=== PATIENT | male | born 2000 | race Caucasian/White ===

== ENCOUNTER 2018-03-10 21:07 | Emergency (ER) | payer BC, SELFPAY ==
[2018-03-10 21:14] VITALS: BP 125/82; PULSE 84; RESP 18; TEMP 37.1; O2SAT 99
[2018-03-10 22:00] VITALS: BP 125/82; PULSE 84; RESP 18; TEMP 37.1; O2SAT 99
--- NOTE | 2018-03-10 22:13 | PC.NURSE ---
Long discussion with patient, verbal contract for safety. Pt. states I am too much of a chicken to use anything in this room - I'm more of a just fall asleep kind of suicide. Family and friend at BS but patient is calm - slightly tearful - but appropriate. Pt. reports having no real cause for his depression. He states he just gets these suicidal thoughts frequently. He reports this being the first time he acted on the thoughts. Is pretty adamant that whatever path he'd take for suicide it would have to be sure not to cause pain. He is very clear that he won't do any self harm when here.
[2018-03-10 22:30] VITALS: BP 109/64; PULSE 68; RESP 20; O2SAT 99
[2018-03-10 22:40] LABS: Add Manual Diff / Slide Review NO; Basophils Percent Auto 0.6 % (0-2); Eosinophils Percent Auto 4.1 % (2-4); Hematocrit 41.5 % (41-53); Hemoglobin 14.5 g/dL (13.5-17.5); Lymphocytes Percent Auto 26.4 % (25-40); Mean Corpuscular HGB Conc 34.9 % (30-36); Mean Corpuscular Hemoglobin 30.9 PG (26-34); Mean Corpuscular Volume 88.5 fL (80-100); Monocytes Percent Auto 8.6 % (3-14); Neutrophils Absolute Auto 5200 /uL (3000-5900); Neutrophils Percent Auto 60.3 % (50-75); Platelet Count 206 X10^3/uL (150-400); Red Blood Cell Count 4.68 X10^6/uL (4.5-5.9); Red Cell Distribution Width 12.7 % (11.6-14.8); White Blood Cell Count 8.6 X10^3/uL (4.5-11.0)
[2018-03-10 22:52] LABS: Alanine Aminotransferase 28 IU/L (21-72); Albumin 4.5 g/dL (3.5-5.0); Albumin Globulin Ratio 1.5 (1.0-2.8); Alkaline Phosphatase 68 U/L (38-126); Aspartate Aminotransferase 18 IU/L (17-59); BUN Creatinine Ratio 18.8 (6-22); Bilirubin Total 0.6 mg/dL (0.2-1.3); Blood Urea Nitrogen 15 mg/dL (9-20); Calcium 9.3 mg/dL (8.4-10.2); Carbon Dioxide 29 mmol/L (22-32); Chloride 101 mmol/L (98-107); Estimated Glomerular Filt Rate > 60.0 mL/min (>60); Ethanol (ETOH) < 10 mg/dL; Glucose 102 mg/dL (70-100); HEMOLYSIS < 15 (0-50); Lipase 36 U/L (23-300); Potassium 3.7 mmol/L (3.4-5.1); Sodium 139 mmol/L (137-145); Total Protein 7.5 g/dL (6.3-8.2)
[2018-03-10 22:53] LABS: Acetaminophen < 10 ug/mL (10-30); Salicylate < 1.0 mg/dL (<20)
[2018-03-10 23:00] VITALS: BP 102/57; PULSE 66; RESP 19; O2SAT 98
--- NOTE | 2018-03-10 23:47 | ED.GENADULT ---
HPI - General Adult General Chief complaint: Toxicology Problem Stated complaint: MOM STATES HE TRIED TO COMMIT SUICIDE Time Seen by Provider: 03/10/18 21:43 Source: patient and family Mode of arrival: ambulatory Limitations: no limitations History of Present Illness HPI narrative: 18-year-old male brought in with his mother and friend who stated that earlier this evening he was sitting in his car and opened a bottle of butane in order to kill himself. Patient states that he constantly has thoughts of suicide. Has seen a mental health provider in the past but does not see a mental health provider now. His anxiety medications are maintain by his primary care doctor down in [place]. Patient states that he has only occasionally been taking his anxiety medicines. He states that he frequently has thoughts of suicide but has never acted on these thoughts. He states that he was in his car today and had thoughts of the suicide and decided to open a container butane that he had. His friend who is at bedside stated that he had texted her stating that he was going to a better place and when she got this text and found out where he was she went to meet him. Patient states that after he open the bottle and butane it was not doing anything so he started to Inhale it. He states that he was stopped by his friend who came to do where his car was. Patient states that he does not know why he decided to act on his thoughts this evening. He denies any specific reason. Patient has never been admitted to the hospital in the past because of these thoughts. States currently that he does not feel like he needs admitted to the hospital. The time of my evaluation patient denied any suicidality. Related Data Home Medications Medication Instructions Recorded Confirmed fluoxetine 40 mg PO DAILY 03/10/18 03/10/18 Allergies Allergy/AdvReac Type Severity Reaction Status Date / Time No Known Drug Allergies Allergy Verified 03/10/18 21:18 Review of Systems Constitutional Denies headache(s) ENT Ears, Nose, Mouth, and Throat: Denies headache(s) Respiratory Denies chest congestion and Denies cough Gastrointestinal Gastrointestinal: Denies diarrhea, Denies nausea and Denies vomiting Musculoskeletal Denies myalgias and Denies arthralgias Integumentary/Breasts Denies lesions and Denies rash Neurologic Denies behavioral changes and Denies headache(s) Psychiatric Denies anxiety, Denies behavioral changes, Reports depression, Denies panic attacks, Denies homicidal ideation and Reports suicidal ideation ( Earlier today but none at the time of my evaluation) Hematologic/Lymphatic Denies easy bruising Exam Initial Vital Signs Initial Vital Signs: Vital Signs Temperature 98.8 F 03/10/18 21:14 Pulse Rate 84 03/10/18 21:14 Respiratory Rate 18 03/10/18 21:14 Blood Pressure 125/82 H 03/10/18 21:14 Pulse Oximetry 99 03/10/18 21:14 Const General: cooperative, healthy appearing, comfortable, well developed, well groomed and No acute distress Nutritional Appearance: average body habitus Orientation: alert, awake and oriented x3 HENMT Head: normal to inspection, normocephalic and atraumatic Resp Effort & Inspection: normal respiratory effort Cardio Rate: regular rate GI Palpation: soft and No firm Skin Lesions: no lesions Rashes: no rashes Neuro General: alert, awake and oriented x3 Cognition: normal cognition Speech: speech normal Gait: normal gait Motor: muscle tone normal throughout Sensory Exam: no sensory deficits noted Extrem General: normal to inspection and capillary refill normal Psych Appearance: grossly normal and well kempt Mental Status: mental status grossly normal Speech and Movement: speech and movement normal Mood: congruent mood Affect: normal affect Attitude: cooperative Thought Process: normal Thought Content: normal Course Orders Ordered: ED Orders 03/10/18 22:37 Acetaminophen Stat Complete Blood Count AUTO DIFF Stat Comprehensive Metabolic Panel Stat Ethanol (ETOH) Stat Lipase Stat Salicylate Stat Vital Signs - 8 hr 03/10/18 21:14 03/10/18 22:00 03/10/18 22:30 Temperature 98.8 F 98.8 F Pulse Rate 84 84 68 Respiratory Rate 18 18 20 Blood Pressure 125/82 H 125/82 H Blood Pressure [Right Arm] 109/64 Pulse Oximetry 99 99 99 03/10/18 23:00 03/11/18 00:03 03/11/18 01:03 Temperature 97.8 F Pulse Rate 66 60 63 Respiratory Rate 19 16 17 Blood Pressure Blood Pressure [Right Arm] 102/57 L 111/71 101/60 Pulse Oximetry 98 99 99 03/11/18 01:08 Temperature Pulse Rate 63 Respiratory Rate 17 Blood Pressure 110/68 Blood Pressure [Right Arm] Pulse Oximetry 100 Medical Decision Making MDM Narrative Medical decision making narrative: patient's labs unremarkable. He was observed here in the emergency department for several hours after he inhaled the butane. He seems to have no affect secondary to this. Had a long discussion with the patient and his mother who is at bedside and his friend who found him regarding disposition. Patient denied suicidality at the time of my evaluation. He stated that he felt like he did not need admitted to the hospital. We did discuss the concerns that I had regarding his acting out on the thoughts that he was having today which he has never done in the past. The mother agreed with this concern. We did discuss the option of admitting the patient to the hospital for continued evaluation and informed them that this would be the quickest way for him to have his medications adjusted which is what the patient thought needed to happen. After this lengthy discussion with both the mother and a friend at bedside the decision was made to discharge the patient home. The mother states that there would be somebody who could watch him. The plan is for him to contact his primary care doctor tomorrow for follow-up. The mother was agreeable with discharging the patient and the patient was okay with this plan. They were given return precautions. They were informed that they could return to the emergency department at any point for thoughts of hurting himself. The patient expressed understanding and stated that he would do this. Patient was alert and oriented x3. In my opinion had the capacity to make decisions. He was medically cleared. No signs of intoxication. Lab Data Lab results reviewed: Yes I reviewed the patient's lab results. Result diagrams: 03/10/18 22:37 03/10/18 22:37 Lab Results 03/10/18 03/10/18 03/10/18 Range/Units 22:37 22:37 22:37 WBC 8.6 (4.5-11.0) X10^3/uL RBC 4.68 (4.5-5.9) X10^6/uL Hgb 14.5 (13.5-17.5) g/dL Hct 41.5 (41-53) % MCV 88.5 (80-100) fL MCH 30.9 (26-34) PG MCHC 34.9 (30-36) % RDW 12.7 (11.6-14.8) % Plt Count 206 (150-400) X10^3/uL Neut % (Auto) 60.3 (50-75) % Lymph % (Auto) 26.4 (25-40) % [place] % (Auto) 8.6 (3-14) % Eos % (Auto) 4.1 H (2-4) % Baso % (Auto) 0.6 (0-2) % Neut # (Auto) 5200 (1619-4330) /uL Sodium 139 (137-145) mmol/L Potassium 3.7 (3.4-5.1) mmol/L Chloride 101 (98-107) mmol/L Carbon Dioxide 29 (22-32) mmol/L BUN 15 (9-20) mg/dL Creatinine 0.80 (0.66-1.25) mg/dL Estimated GFR > 60.0 (>60) mL/min BUN/Creatinine Ratio 18.8 (6-22) Glucose 102 H (70-100) mg/dL Calcium 9.3 (8.4-10.2) mg/dL Total Bilirubin 0.6 (0.2-1.3) mg/dL AST 18 (17-59) IU/L ALT 28 (21-72) IU/L Alkaline Phosphatase 68 (38-126) U/L Total Protein 7.5 (6.3-8.2) g/dL Albumin 4.5 (3.5-5.0) g/dL Globulin 3.0 (1.7-4.1) g/dL Albumin/Globulin Ratio 1.5 (1.0-2.8) Lipase 36 (23-300) U/L Salicylates < 1.0 (<20) mg/dL Acetaminophen < 10 L (10-30) ug/mL Ethyl Alcohol < 10 mg/dL Discharge Plan Departure Patient Disposition: Home, Self-Care Clinical Impression: Adjustment disorder, Depression Discharge Date/Time: 03/11/18 01:05 Interventions: ED Discharge Assessment Last Done: 03/11/18 01:08 Instructions: Depression, Adjustment Disorder Activity Restrictions/Additional Instructions: you are to contact your primary care doctor tomorrow to schedule a follow-up appointment. You are to stay at home or with a family member until you are seen by your primary care doctor. The emergency department is open 10/03 you may return to emergency department at any point for thoughts of hurting herself or others. I encourage you to do this. You can also contact the crisis line on the pamphlet that you were given. Continue all of your medications as directed Prescriptions: No Action fluoxetine 40 mg Capsule 40 mg PO DAILY RF: 0
[2018-03-11 00:03] VITALS: BP 111/71; PULSE 60; RESP 16; O2SAT 99
--- NOTE | 2018-03-11 00:04 | PC.NURSE ---
Mom and friend continue to stay at BS with patient. Vitals remain within normal limits, MD at BS
[2018-03-11 01:03] VITALS: BP 101/60; PULSE 63; RESP 17; TEMP 36.6; O2SAT 99
[2018-03-11 01:08] VITALS: BP 110/68; PULSE 63; RESP 17; O2SAT 100
== END 2018-03-11 01:05 | disposition home or self-care (01) ==
PROVIDERS: Emergency Provider Emergency Medicine; Family Provider Family Medicine; PCP Family Medicine
DX: F43.20 Adjustment disorder, unspecified (principal); F32.9 Major depressive disorder, single episode, unspecified
CPT/HCPCS: 36591; 80053; 80320; 80329; 83690; 85025; 99285; G0480

== ENCOUNTER 2023-10-25 15:14 | Emergency (ER) | payer BC, SELFPAY ==
[2023-10-25 15:19] VITALS: BP 146/93; PULSE 98; RESP 12; TEMP 37.1; O2SAT 99; BMI 23.2
--- NOTE | 2023-10-25 15:47 | ED_ITS ---
HPI - Psych General Chief Complaint: Psychiatric Symptoms Stated Complaint: SI Time Seen by Provider: 10/25/23 15:37 Source: patient Mode of arrival: Ambulatory History of Present Illness HPI Narrative: Patient is a 23-year-old male. History of anxiety, depression and ADHD. Has been prescribed medicines in the past but has not been on them for at least the past 3 months. He states that they were causing him to have quite a bit of anxiety and chest discomfort. He states that for the past several days/weeks he has had increasing frequency of suicidal ideation with a plan. He states these thoughts are now starting to bother him. He has had alcohol within the past 24 hours. Last drink was this morning. He has not tried to hurt himself prior to this visit. He contacted his mother who brought him to the emergency department. Has not seen a mental health professional and at least a year. Recently moved back to the local area after living in [place] for almost a year. He is seeking inpatient treatment for his thoughts. Related Data Home Medications Medication Instructions Recorded Confirmed fluoxetine 40 mg capsule 40 mg PO DAILY 03/10/18 03/10/18 Allergies Allergy/AdvReac Type Severity Reaction Status Date / Time No Known Drug Allergies Allergy Verified 10/25/23 15:32 Review of Systems Constitutional Constitutional: Reports system reviewed and no additional complaints, except as documented Cardiovascular Cardiovascular: Reports system reviewed and no additional complaints, except as documented Respiratory Respiratory: Reports system reviewed and no additional complaints, except as documented Gastrointestinal Gastrointestinal: Reports system reviewed and no additional complaints, except as documented Integumentary/Breasts Skin/Breast: Reports system reviewed and no additional complaints, except as documented Psychiatric Psychiatric: Reports system reviewed and no additional complaints, except as documented Patient History Social History Smoking Status: Current every day smoker Smoking Status: Current every day smoker alcohol intake frequency: 3 or more drinks per day Substance Use Type: marijuana Exam Initial Vital Signs Initial Vital Signs: Vital Signs Temperature 98.8 F 10/25/23 15:19 Pulse Rate 98 H 10/25/23 15:19 Respiratory Rate 12 10/25/23 15:19 Blood Pressure 146/93 H 10/25/23 15:19 Pulse Oximetry 99 10/25/23 15:19 Oxygen Delivery Method Room Air 10/25/23 15:19 Const General: cooperative, comfortable and No ill appearing [facility] Head: normal to inspection and normocephalic Resp Effort & Inspection: normal respiratory effort Auscultation: clear to auscultation bilaterally Cardio Rate: regular rate Rhythm: regular rhythm GI Inspection: normal to inspection Palpation: soft, No firm and No guarding Skin General: no rashes or lesions noted Neuro General: patient alert, patient awake, patient oriented x3 and moves all extremities Psych Other: Calm, cooperative, does have suicide ideation. No homicidal ideation. Course Orders Ordered: ED Orders 10/25/23 15:31 Consult to [facility] [place] Dividing Machine Operator Stat Complete Blood Count AUTO DIFF Stat Thyroid Stimulating Hormone Stat 10/25/23 15:40 Acetaminophen Stat COVID19 -Nasal RAPID Stat Comprehensive Metabolic Panel Stat Ethanol (ETOH) Stat Salicylate Stat 10/25/23 15:54 Urine Drug Screen, Rapid Stat Vital Signs Vital signs: Vital Signs - 8 hr 10/25/23 15:19 Temperature 98.8 F Pulse Rate 98 H Respiratory Rate 12 Blood Pressure 146/93 H Pulse Oximetry 99 Oxygen Delivery Method Room Air MDM - Psych Lab Data 10/25/23 15:40 10/25/23 15:40 Labs: Lab Results 10/25/23 10/25/23 Range/Units 15:40 15:54 WBC 8.4 (4.5-11.0) X10^3/uL RBC 5.13 (4.5-5.9) X10^6/uL Hgb 15.6 (13.5-17.5) g/dL Hct 44.8 (41-53) % MCV 87.4 (80-100) fL MCH 30.3 (26-34) PG MCHC 34.7 (30-36) % RDW 13.0 (11.6-14.8) % Plt Count 299 (150-400) X10^3/uL Neut % (Auto) 57.9 (50-75) % Lymph % (Auto) 29.7 (25-40) % [place] % (Auto) 9.3 (3-14) % Eos % (Auto) 2.5 (2-4) % Baso % (Auto) 0.6 (0-2) % Neut # (Auto) 4900 (2034-6912) /uL Lymph # (Auto) 2500 (7294-3164) /uL [place] # (Auto) 800 (0-900) /uL Eos # (Auto) 200 (0-450) /uL Baso # (Auto) 100 (0-100) /uL Sodium 141 (137-145) mmol/L Potassium 3.7 (3.4-5.1) mmol/L Chloride 103 (98-107) mmol/L Carbon Dioxide 31 (22-32) mmol/L BUN 18 (9-20) mg/dL Creatinine 0.97 (0.66-1.25) mg/dL Estimated GFR > 60 (>60) mL/min BUN/Creatinine Ratio 18.6 (6-22) Glucose 93 (70-100) mg/dL Calcium 10.0 (8.4-10.2) mg/dL Total Bilirubin 1.7 H (0.2-1.3) mg/dL AST 24 (17-59) IU/L ALT 31 (<50) IU/L Alkaline Phosphatase 70 (38-126) U/L Total Protein 9.2 H (6.3-8.2) g/dL Albumin 5.1 H (3.5-5.0) g/dL Globulin 4.1 (1.7-4.1) g/dL Albumin/Globulin Ratio 1.2 (1.0-2.8) TSH 3.28 (0.47-4.68) uIU/mL Salicylates < 1.0 (<20) mg/dL U Opiates 300ng/mL cut Negative (Negative) Ur Oxycodone Screen Negative (Negative) Urine Methadone Screen Negative (Negative) Acetaminophen < 10 (10-30) ug/mL Ur Barbiturates Screen Negative (Negative) U Tricyclic Antidepress Negative (Negative) Ur Phencyclidine Scrn Negative (Negative) Ur Amphetamines Screen Negative (Negative) U Methamphetamines Scrn Negative (Negative) Ur MDMA Scrn (Ecstasy) Negative (Negative) U Benzodiazepines Scrn Negative (Negative) Urine Cocaine Screen Negative (Negative) U Marijuana (THC) Screen Positive H (Negative) Urine pH Normal (Normal) Urine Specific [place] Normal (Normal) Ethyl Alcohol < 10 ( - 10) mg/dL Ur Creatinine Normal (Normal) SARS-CoV-2 (PCR) Negative (Negative) Urine Dip Bedside Urine Glucose Negative Bedside Urine Bilirubin - Negative Bedside Urine Ketone - Negative Urine Specific [place] 1.03 Bedside Urine Occult Blood - Negative Bedside Urine pH 6.0 Bedside Urine Protein - Negative Bedside Urine Urobilinogen - Negative Bedside Urine Nitrite - Negative Bedside Urine Leukocytes - Negative Esterase MDM Narrative Medical decision making narrative: Patient has had progressively worsening and more intrusive suicidal ideation. Arrives emergency department voluntarily. Is alert and oriented x3. Is not clinically intoxicated. Patient has been seen by social work. He requests help with his suicidal thoughts. Patient is medically cleared. We will attempt to find placement. Patient remains calm, remains voluntary. Is medically cleared. Has been accepted to [facility]. Patient is stable for transport. Discharge Plan Departure Patient Disposition: Xfer Psychiatric Hosp Clinical Impression: Depression, Suicidal ideation Prescriptions: No Action fluoxetine 40 mg Capsule 40 mg PO DAILY Referrals: Mariella Hilario DO [Primary Care Provider] -
[2023-10-25 16:09] LABS: Acetaminophen < 10 ug/mL (10-30); Add Manual Diff / Slide Review NO; Alanine Aminotransferase 31 IU/L (<50); Albumin 5.1 g/dL (3.5-5.0); Albumin Globulin Ratio 1.2 (1.0-2.8); Alkaline Phosphatase 70 U/L (38-126); Aspartate Aminotransferase 24 IU/L (17-59); BUN Creatinine Ratio 18.6 (6-22); Basophils Absolute Auto 100 /uL (0-100); Basophils Percent Auto 0.6 % (0-2); Bilirubin Total 1.7 mg/dL (0.2-1.3); Blood Urea Nitrogen 18 mg/dL (9-20); Carbon Dioxide 31 mmol/L (22-32); Chloride 103 mmol/L (98-107); Eosinophils Absolute Auto 200 /uL (0-450); Eosinophils Percent Auto 2.5 % (2-4); Estimated Glomerular Filt Rate > 60 mL/min (>60); Ethanol (ETOH) < 10 mg/dL; Globulin 4.1 g/dL (1.7-4.1); Glucose 93 mg/dL (70-100); HEMOLYSIS < 15 (0-50); Hematocrit 44.8 % (41-53); Hemoglobin 15.6 g/dL (13.5-17.5); Lymphocytes Absolute Auto 2500 /uL (1100-4500); Lymphocytes Percent Auto 29.7 % (25-40); Mean Corpuscular HGB Conc 34.7 % (30-36); Mean Corpuscular Hemoglobin 30.3 PG (26-34); Mean Corpuscular Volume 87.4 fL (80-100); Monocytes Absolute Auto 800 /uL (0-900); Monocytes Percent Auto 9.3 % (3-14); Neutrophils Absolute Auto 4900 /uL (1500-7000); Neutrophils Percent Auto 57.9 % (50-75); Platelet Count 299 X10^3/uL (150-400); Potassium 3.7 mmol/L (3.4-5.1); Red Blood Cell Count 5.13 X10^6/uL (4.5-5.9); Salicylate < 1.0 mg/dL (<20); Sodium 141 mmol/L (137-145); Total Protein 9.2 g/dL (6.3-8.2); White Blood Cell Count 8.4 X10^3/uL (4.5-11.0)
[2023-10-25 16:11] LABS: UR Morphine/Opiate cutoff 300 Negative (Negative); Ur Creatinine Normal (Normal); Ur Specific Gravity Normal (Normal); Urine Amphetamines Negative (Negative); Urine Barbiturates Negative (Negative); Urine Benzodiazepines Negative (Negative); Urine Cocaine Negative (Negative); Urine MDMA Negative (Negative); Urine Methadone Negative (Negative); Urine Methamphetamines Negative (Negative); Urine Oxycodone Negative (Negative); Urine Phencyclidine Negative (Negative); Urine Tetrahydrocannabinol Positive (Negative); Urine Tricyclic Antidepressant Negative (Negative); Urine pH Normal (Normal)
[2023-10-25 16:15] LABS: COVID19 -Nasal RAPID Negative (Negative)
--- NOTE | 2023-10-25 16:27 | CM.SWNOTE ---
ED FORMS DESIGNER Assessment FORMS DESIGNER - Supervisor Agency Appointments Assessment FORMS DESIGNER - Supervisor Agency Appointments Assessment Start: 10/25/23 15:37 Freq: Status: Active Protocol: Document 10/25/23 15:38 BDL (Rec: 10/25/23 16:26 BDL [id number]) FORMS DESIGNER/Supervisor Agency Appointments Assessment Time Spent with Patient Start date 10/25/23 Visit Start Time 03:30 End date 10/25/23 Visit End Time 03:40 Total time Care Management spent on 10 patient visit-in minutes Mental Health Screening Include Onset, Duration, Intensity Presenting Problem Pt presents to the ED for SI and being off of medications for three months. I have just been smoking and drinking and I am tired of that I need help. Pt reports that he has been drinking 3 beer a day that past 2 weeks and started smoking cigarettes again. Pt also reports he has had a hard time giving up marijuana. Pt' s anxiety is increasing I am so burnt out in every aspect of everything. Precipitating Event(s) Pt reports that he has recently moved back to [place] from [place] after living there a year and a half . Pt reports that he has since been drinking and smoking more but It's not working anymore. Patient Strengths Friends, parents, insight. Current Behavioral Health Provider(s) Pt last saw a therapist in [facility] Facility, Provider, Ph. # 2016 but did not have additional contact information . I love therapy... well actually looking back he may have caused a lot of trauma. Psych. Hx Mental Health and Chemical Pt has hx of anxiety, Dependency depression, ADHD, OCD. Pt endorses daily cannabis use and alcohol use beginning two weeks ago. I can't even quit weed... maybe if I went inpatient I'd be forced to. Family Hx of Behavioral Abuse Anxiety, depression. Psychiatric Hospitalizations (date(s)/ None. location) Psychosocial information & Support Pt is a 23 y/o male who lives Systems at home w/ his parents. They try but they don't understand my mental health.. well my mom took me here so shes trying. Pt cites his friends as supportive of him and his mental health. Some of my friends have been to [facility] and they go in suicidal and they've come out like different people. School/Work Pt works as a caregiver in a memory care unit. Pt reports that he usually loves his job but hasn't found enjoyment in it lately. Legal Concerns Legal Matters - Outstanding Issues None reported. Mental Status Orientation (Person/Place/Time) A/O x4 Stated Mood I'm scared of my thoughts. Affect (Congruent with Mood?) Dysphoric, tearful, labile. Thought Content - Specify/Describe Preoccupations of SI. Pt feels Obsessions, Delusions, Hallucinations as if nothing is getting better and that his substance use is no longer helping him cope. Thought Processes (Qgycwbg-Ygryepja-Uzgb Logical/coherent. Bynlvkmf-Ozxkpynt-Tdnhevbxjx- Rsinytkftqzlpg-Fvbawix-Zfsnsahcqebv- Thought Blocking) Speech (Stiisn-Zfdm-Nmkxhxd-Rapid-Soft- Normal. Loud-Pressured) Motor (Zpyhje-Awnixwefq-Mbmt-Other) Normal. Insight (Mgcw-Rxuq-Tvnx/Limited) Good. Judgement (Xwln-Cfto-Jjfq/Limited) Limited due to si/depression Impulse Control (Adequate-Impaired) Adequate. Memory (Mrifgvisf-Aroics-Ufzace, Intact. Impaired-Intact) Concentration (Intact-Impaired) Intact. Attention (Intact-Impaired) Intact. Behavior (Appropriate-Inappropriate) Appropriate. Risk Assessment Suicidal Ideation (Plan) Yes Homicidal Ideation (Plan) No Comment Pt reports that he is having thoughts of suicide. PT reports that he has had a plan in the past to use a propane heater and to go out in the [place] in a tent to just fall asleep. PT also reported that he knows his friends parents have a lot of morphine and that he cannot get the thought out of his head. Pt reported one attempt in the past when he created a contraption w/ a butane tank. I didn't really want to do it so I texted my friend and they showed up before anything happened. Intervention Intervention FORMS DESIGNER entered triage room w/ RN. Pt appeared euthymic upon entering the room. Pt quickly turned to tears when discussing his presenting issue. I recently moved back from [place] and haven't been able to take my meds. Pt reports that he moved back to [place] to take care of his mental health. Pt reports that he has been drinking three beers a day for the past two weeks and has been noticing increasing SI. Pt also began smoking 1-2 cigarettes again. Pt expressed concern over marijuana use. I can't even quit weed. Pt is interested in inpatient treatment. I've had friends go to [facility] and come out completely different . Pt reports that he is scared of his thoughts and that nothing is working. When presented w/ the possibility of inpatient services pt began to cry what really you can do that. Pt appeared relieved at the possibility. They are like nice people right? Because I really just need help. Pt is calm, communicative, and cooperative. It is the opinion of this FORMS DESIGNER that the pt would greatly benefit from inpatient psych treatment. FORMS DESIGNER discussed this w/ ED provider Lanker who indicated agreement and understanding. Plan RA Plan FORMS DESIGNER to seek in patient treatment for the pt. Orestes Maier MSW, MARILYNIC
[2023-10-25 16:39] LABS: Thyroid Stimulating Hormone 3.28 uIU/mL (0.47-4.68)
--- NOTE | 2023-10-25 17:12 | PC.NURSE ---
[id number] Patient accepted by [facility]. Patient curious if POV transport is an option. Deferred to [facility] [employer] and MD. Pt concerned about cost.
--- NOTE | 2023-10-25 17:14 | PC.NURSE ---
Registration looking into cost and insurance coverage for patients information
--- NOTE | 2023-10-25 17:21 | PC.NURSE ---
Dr Moreno ok with patient being transported to [facility] via private vehicle. Mother and patient agreeable to holding in ER till time to leave and meet 2030 arrival time. Mom and patient contract for safety and direct transport to facility.
--- NOTE | 2023-10-25 17:28 | PC.NURSE ---
After discussion with social work and [facility] they will not allow arrival via POV. Requiring BLS transport to facility. ALEX Carlisle updated patient and mother
--- NOTE | 2023-10-25 17:34 | CM.SWNOTE ---
ED CLINICAL NUTRITION MANAGER Note CLINICAL NUTRITION MANAGER called [facility] to check on bed status. They did not have any voluntary beds available. CLINICAL NUTRITION MANAGER followed up by calling [facility] and was informed to fax a packet over for review. Pt was accepted at [facility]. Pt's mom was willing to transport pt to avoid an ambulance bill. CLINICAL NUTRITION MANAGER touched base w/ [facility] and was informed that he would need to arrive via ambulance otherwise he is considered a walk in and they would not have a bed available. CLINICAL NUTRITION MANAGER discussed this w/ pt and mom who were agreeable. ALEX Melgoza, THANG
--- NOTE | 2023-10-25 19:13 | PC.NURSE ---
attempted to call report to [facility]. Nurses are in report. Will call back.
== END 2023-10-25 19:51 ==
PROVIDERS: Emergency Provider Emergency Medicine; Family Provider Family Medicine; PCP Family Medicine
DX: R45.851 Suicidal ideations (principal); F32.9 Major depressive disorder, single episode, unspecified; Z20.822 Contact with and (suspected) exposure to COVID-19
CPT/HCPCS: 80053; 80305; 80320; 80329; 81003; 84443; 85025; 87635; 99284; G0480

== ENCOUNTER 2025-07-29 15:38 | Emergency (ER) | payer OTHER, SELFPAY ==
[2025-07-29 15:46] VITALS: BP 151/101; PULSE 92; RESP 12; TEMP 36.6; O2SAT 99
--- NOTE | 2025-07-29 17:42 | ED_ITS ---
HPI - Psych General Chief Complaint: Psychiatric Symptoms Stated Complaint: Medication based SI; Sent from [facility] Time Seen by Provider: 07/29/25 15:45 Source: patient Mode of arrival: Ambulatory History of Present Illness HPI Narrative: 25-year-old male patient with a history of Qqmaa-Mobuzqblu-Tdjqj syndrome and depression who has had a history of exacerbations with aggravation, anger and intermittent suicidal thoughts. Those have come back again the last 2 days although he is not acutely suicidal and having a plan. He is just frustrated with his mood swings and agitation. No paranoia is or hallucinations. His customs patrol officer asked him to stop using marijuana and he stopped that 3 days ago. This is prior to following up for his Sssea-Ykdqgbrmc-Akoqp syndrome. Related Data Home Medications ?Medication ?Instructions ?Recorded ?Confirmed lamotrigine 25 mg tablet 25 mg PO DAILY 05/25/2505/20 clonazepam 0.5 mg tablet 0.25 mg PO DAILY PRN 5 06/16/25 propranolol 10 mg tablet 10 mg PO BID PRN 06/16/25 Previous Rx's ?Medication ?Instructions ?Recorded bupropion HCl 300 mg 24 hr tablet, 300 mg PO QAM #60 t abs 06/16/25 extended release (Wellbutrin XL) Allergies Allergy/AdvReac Type Severity Reaction Status Date / Time No Known Drug Allergies Allergy Verified 06/16/25 06:57 Review of Systems Review of Systems ROS Unobtainable: All systems reviewed & are unremarkable except as noted in HPI and below Psychiatric Psychiatric: Reports as per HPI Patient History Social History Smoking Status: Former smoker Smoking Status: Former smoker alcohol intake frequency: 3 or more drinks per day Exam Narrative Exam Narrative: General: Alert and conversant. No distress. Appears well nourished and well hydrated Craniofacial: No evidence of trauma. Nontender and no swelling. Eyes: PERRLA EOMI conjunctiva clear Lungs: Clear to auscultation with good air movement. No wheezing, rales or rhonchi. No respiratory distress Cardiac: Regular rate and rhythm with no appreciable murmur or gallop Abdomen: Soft, nontender with no distention or masses. Normal bowel sounds. No rebound or guarding Neuro: Alert and oriented. Cranial nerves, motor, sensory and cerebellar all grossly intact. No focal deficit Skin: Warm and normal color. No rashes Psychological: Normal affect and interaction. No evidence of delusion or psychosis. Normal mood. Currently not suicidal. Initial Vital Signs Initial Vital Signs: Vital Signs Temperature 98 F 07/29/25 15:46 Pulse Rate 92 H 07/29/25 15:46 Respiratory Rate 12 07/29/25 15:46 Blood Pressure 151/101 H 07/29/25 15:46 Pulse Oximetry 99 07/29/25 15:46 Oxygen Delivery Method Room Air 07/29/25 15:46 Course Orders Ordered: ED Orders 07/29/25 16:01 Consult to FIRE EQUIPMENT INSPECTOR - Mailroom Supervisor Stat Vital Signs Vital signs: Vital Signs - 8 hr 07/29/25 15:46 Temperature 98 F Pulse Rate 92 H Respiratory Rate 12 Blood Pressure 151/101 H Pulse Oximetry 99 Oxygen Delivery Method Room Air MDM - Psych MDM Narrative Medical decision making narrative: Currently not suicidal and I do not believe he needs a lab workup or DCR evaluation. He is comfortable with outpatient management. He also has his partner who is comfortable with that plan. patient financial services specialist working on outpatient support and follow up for him. 17:40 Patient is not acutely suicidal. Patient had a long conversation with our social media marketing analyst and he and his partner both comfortable managing this as an outpatient. patient financial services specialist arranged for him to have teleconferencing tomorrow with [facility], [facility]. He will continue his other medications and follow up with primary care. Return to the ER if worse Discharge Plan Departure Patient Disposition: Home Clinical Impression: Suicidal thoughts, Labile mood Instructions: DI for Suicidal Ideation-Adult Activity Restrictions/Additional Instructions: Plan: Continue current medications including clonazepam as needed. Follow up with counseling as arranged by social media marketing analyst and also with primary care. Return to the ER as needed if worse Prescriptions: No Action lamotrigine 25 mg tablet 25 mg PO DAILY propranolol 10 mg tablet 10 mg PO BID PRN clonazepam 0.5 mg tablet 0.25 mg PO DAILY PRN bupropion HCl [Wellbutrin XL] 300 mg tablet extended release 24 hr 300 mg PO QAM Qty: 60 3RF Referrals: Maggy Madison DO [Primary Care Provider, Family Practice] Stand Alone Forms: Patient Portal/API
--- NOTE | 2025-07-29 18:27 | CM.SWNOTE ---
ED NATURE PHOTOGRAPHER Assessment Note NATURE PHOTOGRAPHER - Charge Attendant Assessment NATURE PHOTOGRAPHER/Charge Attendant Assessment Time Spent with Patient Start date 07/29/25 Visit Start Time 15:45 End date 07/29/25 Visit End Time 16:15 Total time Care 30 minutes Management spent on patient visit-in minutes Mental Health Screening Include Onset, Duration, Intensity Presenting Problem Patient presents to the ED due to concern for intrusive thoughts, SI, and emotional disregulation that has been increasing over the last year. It is reported that patient was experiencing SI that comes and goes in the last two days and it frightened patient, patient endorses passive thoughts of plans but denies intent. Precipitating Event( Patient states that he just stopped using marijuana 3 s) days ago per recommendation from his steel post installer supervisor and stopped using nicotene, patient states that he used to use marijuana to assist with stabilizing his anxiety. Patient has diagnosis of Xrbzl-Spvblsxaz-Oabdb syndrome and has upcoming procedure next month, patient also endorses concern for executive functioning, maintaining a job, difficulty sleeping and negative self talk. Patient presents with concern that is he is stuck in a cycle of negative self talk and shame. Patient endorses that he feels misunderstood by his parents and wishes they could feel what it is like to be him. Patient Strengths Patient has good supports from parents who are providing him a place to stay patient has good support from his partner. Patient shows good insight. Current Behavioral Patient denies current provider but states he is Health Provider(s) interested in seeking a provider. Include Facility, Provider, Ph. # Psych. Hx Mental Patient has hx of Anxiety, Depression, OCD, and ADHD. Health and Chemical Patient endorses that he has not taken ADHD medication Dependency since he was a freshman in high school. Patient is currently prescribed, Lamotrigine 25 mg, propranolol 10mg, clonazepam 0.5 mg, and buproprion HCl 300mg extended release. Patient endorses hx of regular nicotene and marijuana use. Patient states that he stopped uses both substances recently, patient denies any other substance use. Psychiatric Patient was voluntary at [facility] in October 2023 Hospitalizations ( for about a week. date(s)/location) Psychosocial Patient is 25 y/o male who resides with parents, information & patient has good support from his partner Tylor. 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 Legal Concerns Legal Matters - None reported Outstanding Issues Mental Status Orientation (Person/ A/Ox4 Place/Time) Stated Mood emotionally all over the place Affect (Congruent tearful, labile, cycling to euthymic with Mood?) Thought Content - Patient denies any concern for paranoia, delusions or Specify/Describe hallucinations. Obsessions, Delusions, Hallucinations Thought Processes ( coherent Logical-Coherent- Goal Directed- Detailed-Tangential- Circumstantial- Logical-Disorganized -Thought Blocking) Speech (Normal-Slow- pressured/normal Rspdffe-Rsaae-Akix- Loud-Pressured) Motor (Normal- normal Yuobcpvfm-Elcs-Xjyxp ) Insight (Good-Fair- good Poor/Limited) Judgement (Good-Fair good -Poor/Limited) Impulse Control ( adequate Adequate-Impaired) Memory (Immediate- intact, not formally assessed Recent-Remote, Impaired-Intact) Concentration ( intact Intact-Impaired) Attention (Intact- intact Impaired) Behavior ( appropriate Appropriate- Inappropriate) Additional Comment Patient presents as calm, cooperative & communicative Risk Assessment Suicidal Ideation ( No Plan) Homicidal Ideation ( No Plan) Comment Patient denies current SI or HI. Patient endorses increase in intrusive thoughts and SI, patient denies intent and states that these thoughts scare him. Patient states that these thoughts come on out of nowhere and go, patient endorses he doesn't' know why he is having these thoughts because of his goals for the future. Patient's partner states that patient fixates on the SI thoughts which increases patient's anxiety. Patient states that he has passively thought of classic ways and means. It is reported that patient does not have access to medications other than his antidepressants in the home. Patient states in the past several years ago patient attempted suicide using butane in his nose in the car, but states a friend found him. Per EMR patient endorses hx of thoughts of going to a tent in the [place] with a propane heater and falling asleep or taking his friends parent's morphine to overdose on it. Intervention Intervention NATURE PHOTOGRAPHER enters triage to meet with patient, present in triage is stock buyer and patient's partner, patient gives consent for them to be present. Patient endorses concern intrusive thoughts, emotional regulation, and passive SI. Patient contracts for safety and denies current SI. NATURE PHOTOGRAPHER discusses [facility] inpatient hospitalization, patient endorses he does not believe he is in need of that level of care at this time and has preference to return home with supports. NATURE PHOTOGRAPHER discusses [facility] telehealth, patient endorses that he originally planned to utilize that service after [place] but never followed through. Patient endorses interest in [facility] referral and seeking correction outpatient MH provider and Psychiatrist. NATURE PHOTOGRAPHER provides patient with active listening therapeutic conversation and validation. Patient endorses is interest in having regular therapeutic sessions. NATURE PHOTOGRAPHER submits referral to [facility], patient is contacted while in the ED and it is reported that patient will have his first appt tomorrow. NATURE PHOTOGRAPHER provides patient with lists of MH providers that accept his insurance, [facility] information and lists of crisis contacts. NATURE PHOTOGRAPHER contacts patient's PCP clinic and requests ED f/u appt for patient. It is the opinion of this NATURE PHOTOGRAPHER that patient is safe to d /c to home upon medical clearance with resources and referrals provided. NATURE PHOTOGRAPHER reviews this with ED provider Dr. Aguila who indicates agreement and understanding. Plan RA Plan Patient to d/c upon medical clearance with referral for [facility] telehealth program tomorrow, MH resources provided and f/u with PCP provider. BALDO Swift
== END 2025-07-29 17:58 | disposition home or self-care (01) ==
PROVIDERS: Emergency Provider Emergency Medicine; PCP Family Medicine
DX: R45.851 Suicidal ideations (principal); R45.86 Emotional lability; F32.A Depression, unspecified
CPT/HCPCS: 99283